=== PATIENT | female | born 1985 | race Hispanic/Latino ===

== ENCOUNTER 2020-06-16 09:29 | Outpatient (CLI) | payer OTHER | END 2020-06-16 09:30 | disposition home or self-care (01) | LOC: BICULT 09:29 | PROVIDERS: ATTEND Family Medicine | DX: Z34.82 Encounter for supervision of other normal pregnancy, second trimester (principal); Z3A.26 26 weeks gestation of pregnancy | CPT/HCPCS: 76805 ==